=== PATIENT | male | born 1985 | race African-American/Black ===

== ENCOUNTER 2017-12-02 00:05 | Emergency (ER) | payer OTHER ==
[~2017-12-02] VITALS: Ht 172.7 cm; Wt 95.3 kg
[~2017-12-02 00:05] MED LIST: FLEXERIL PO; HYDROCODONE-AP1 EAC6 PO; IBUPROFEN 600600 M1 PO
[2017-12-02] MEDS ORDERED: ALEVE220 MG PO (01:12)
[2017-12-02 01:23] VITALS: BP 119/83
== END 2017-12-02 01:24 | disposition home or self-care (01) ==
LOC: ER 00:05
DX: M54.5 Low back pain (principal); F17.210 Nicotine dependence, cigarettes, uncomplicated; V89.0XXA Person injured in unspecified motor-vehicle accident, nontraffic, initial encounter; Y93.89 Activity, other specified; Y92.89 Other specified places as the place of occurrence of the external cause; Y99.8 Other external cause status